=== PATIENT | female | born 1965 | race Caucasian/White ===

== ENCOUNTER 2021-09-13 10:06 | Emergency (ER) | payer MEDICAID ==
[2021-09-13] MEDS ORDERED: Sodium Chloride 0.9% 1000 ML 1,000 ML IV STA (10:33)
[2021-09-13] MEDS ORDERED: Zofran 4 MG/2 ML VIAL IV ONE (10:33)
[2021-09-13] MEDS ORDERED: Zofran 4 MG/2 ML VIAL ONE (10:36)
[2021-09-13] MEDS ORDERED: Sodium Chloride 0.9% 1000 ML 1,000 ML ONE (10:36)
--- NOTE | 2021-09-13 10:40 | ERPHSYRPT ---
- History of Present Illness Historian: patient Exam Limitations: no limitations Patient Subjective Stated Complaint: PT states "I have been vomiting since monday and the right side of my lower back hurts.". Pt sister states "She has chronic UTI, she just had her left caritid cleaned out and she needs her right carotid and both femorals done as well. We just moved her here from [place]. She is diabetic, has abdomen issues as well." Triage Nursing Assessment: Pt presented alert and oriented X 3, skin wpd Pt ambulates with an upright steady gait, able to speak in clear full sentences pt in no apparent respiratory distress. Physician History: 56 yo wf w N/V x 3 days. Pt has mild diarrhea but denies any real abdominal pain. Chest pain/dyspnea are also denied. Pt has a mild cough which she states is chronic. Hematemesis/melena/hematochezia are also denied. Pt has mild R flank pain and mild dysuria wo hematuria/frequency. Pt is fully vaccinated and fever is denied. Pt smokes 1ppd and ETOH use denied. Timing/Duration: other (3 days) Quality: other (No real abdominal pain) Pain Radiation: no radiation Severity of Pain-Max: none Severity of Pain-Current: none Modifying Factors: Improves With: nothing, urinating Associated Symptoms: back, diarrhea (Mild), nausea, vomiting Previous symptoms: no prior history Allergies/Adverse Reactions: Cephalosporins Allergy (Intermediate, Verified 09/13/21 10:24) Tetracyclines Allergy (Intermediate, Verified 09/13/21 10:24) avalox Allergy (Intermediate, Uncoded 09/13/21 10:24) Home Medications: Atorvastatin Calcium [Lipitor 40Mg] 40 mg PO DAILY 09/13/21 [History] Gabapentin [Neurontin] 300 mg PO TID 09/13/21 [History] Iron 18 mg PO DAILY 09/13/21 [History] Lisinopril 5 mg [Zestril 5 MG] 5 mg PO DAILY 09/13/21 [History] Metformin HCl [Metformin ER Gastric] 500 mg PO BID 09/13/21 [History] Hx Tetanus, Diphtheria Vaccination/Date Given: No Hx Influenza Vaccination/Date Given: Yes Hx Pneumococcal Vaccination/Date Given: Yes Immunizations Up to Date: Yes Travel Risk - International Travel Have you traveled outside of the country in past 3 weeks: No - Coronavirus Screening Are you exhibiting any of the following symptoms?: No Close contact with a COVID-19 positive Pt in past 14-21 Days: No - Vaccine Status Have you recieved a Covid-19 vaccination: Yes 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 - Vaccination Dates Date of 2cond Vaccination (if applicable): 07/2021 - Review of Systems Constitutional: No Symptoms Eyes: No Symptoms Ears, Nose, & Throat: No Symptoms Respiratory: No Symptoms Cardiac: No Symptoms Abdominal/Gastrointestinal: No Symptoms, Nausea, Vomiting, Diarrhea, No Abdominal Pain Genitourinary Symptoms: No Symptoms, Dysuria (Mild), Flank Pain Musculoskeletal: No Symptoms Skin: No Symptoms Neurological: No Symptoms Psychological: No Symptoms Endocrine: No Symptoms Hematologic/Lymphatic: No Symptoms Immunological/Allergic: No Symptoms - Past Medical History Pertinent Past Medical History: Yes Neurological History: Dementia ENT History: No Pertinent History Cardiac History: Hypertension Respiratory History: COPD Endocrine Medical History: Diabetes Type II Musculoskeletal History: Arthritis GI Medical History: GERD, Other History: No Pertinent History Psycho-Social History: No Pertinent History Female Reproductive Disorders: No Pertinent History Other Medical History: metabolic encephalopathy. frequent UTI - Past Surgical History Past Surgical History: Yes Other Surgical History: carotid. back. sg. hysterectomy - Social History Smoking Status: Current every day smoker How long have you smoked: years Exposure to second hand smoke: Yes Drug Use: none Patient Lives Alone: No - Female History Hx Now: No - Nursing Vital Signs Nursing Vital Signs: Initial Vital Signs Temperature 97.8 F 09/13/21 10:15 Pulse Rate 101 H 09/13/21 10:15 Respiratory Rate 20 09/13/21 10:15 Blood Pressure 136/86 09/13/21 10:15 O2 Sat by Pulse Oximetry 100 09/13/21 10:15 Pain Scale Pain Intensity 0 Tachy - Physical Exam General Appearance: no apparent distress Eye Exam: PERRL/EOMI, eyes nml inspection Ears, Nose, Throat Exam: normal ENT inspection, TMs normal, pharynx normal, moist mucous membranes Neck Exam: normal inspection, non-tender, supple, full range of motion, No meningismus, No mass, No Brudzinski, No Kernig's, No carotid bruit Respiratory Exam: normal breath sounds, lungs clear, airway intact Cardiovascular Exam: tachycardia (Mild) Gastrointestinal/Abdomen Exam: soft, normal bowel sounds, No tenderness, No distention Extremity Exam: normal inspection, normal range of motion Neurologic Exam: alert, oriented x 3, cooperative, cementer machine II-XII nml as tested, normal mood/affect, nml cerebellar function, nml station & gait, sensation nml Skin Exam: normal color, warm, dry Lymphatic Exam: No adenopathy SpO2 Interpretation: normal SpO2: 100 O2 Delivery: Room Air - Course Nursing assessment & vital signs reviewed: Yes EKG Interpreted by Me: RATE (NSR/R91/Normal Qt-QTc/Low voltage/No acute ST segment changes) - CT Exams Abdomen/Pelvis CT Interpretation: Discussed w/radiologist (Nothing acute/2.3x2.5AAA/Normal appy/Previous sg) Ordered Tests: Active Orders 24 hr Category Date Time Status EKG-ER Only STAT Care 09/13/21 10:33 Completed IV Insertion STAT Care 09/13/21 10:33 Completed ABDOMEN AND PELVIS W/0 CONTRAS [CT] Stat Exams 09/13/21 11:36 Completed CBC W DIFF Stat Lab 09/13/21 10:45 Completed CMP Stat Lab 09/13/21 10:45 Completed Lactic Acid Stat Lab 09/13/21 10:33 Completed TROPONIN Q3H Lab 09/13/21 10:45 Completed UA W/RFX UR CULTURE Stat Lab 09/13/21 10:29 Completed Medication Summary Discontinued Medications Generic Name Dose Route Start Last Admin Trade Name Freq PRN Reason Stop Dose Admin Fentanyl Citrate 25 mcg 09/13/21 11:48 09/13/21 11:52 Fentanyl Citrate 100 Mcg/2 Ml* Vial IV 09/13/21 11:49 25 mcg STAT ONE Administration Fentanyl Citrate Confirm 09/13/21 11:51 Fentanyl Citrate 100 Mcg/2 Ml* Vial Administered 09/13/21 11:52 Dose 100 mcg .ROUTE .STK-MED ONE Sodium Chloride 1,000 mls @ 999 mls/hr 09/13/21 10:33 09/13/21 11:47 Sodium Chloride 0.9% 1000 Ml IV 09/13/21 11:33 Infused .Q1H1M STA Infusion Sodium Chloride Confirm 09/13/21 10:36 Sodium Chloride 0.9% 1000 Ml Administered 09/13/21 10:37 Dose 1,000 mls @ ud .ROUTE .STK-MED ONE Ondansetron HCl 4 mg 09/13/21 10:33 09/13/21 10:38 Ondansetron Hcl 4 Mg/2 Ml Vial IV 09/13/21 10:34 4 mg STAT ONE Administration Ondansetron HCl Confirm 09/13/21 10:36 Ondansetron Hcl 4 Mg/2 Ml Vial Administered 09/13/21 10:37 Dose 4 mg .ROUTE .STK-MED ONE Lab/Rad Data: Laboratory Result Diagrams 09/13/21 10:45 09/13/21 10:45 Laboratory Results 09/13/21 09/13/21 09/13/21 Range/Units 10:45 10:45 10:45 WBC 12.3 H (4.0-10.5) K/mm3 RBC 4.74 (4.1-5.4) M/mm3 Hgb 13.4 (12.0-16.0) gm/dl Hct 39.6 (35-47) % MCV 83.5 (78-100) fl MCH 28.3 (26-32) pg MCHC 33.8 (32-36) g/dl RDW 14.9 H (11.5-14.0) % Plt Count 282 (150-450) K/mm3 MPV 9.3 (7.5-11.0) fl Gran % 63.0 (36.0-66.0) % Eos # (Auto) 0.08 (0-0.5) Absolute Lymphs (auto) 3.64 (1.0-4.6) Absolute Monos (auto) 0.81 (0.0-1.3) Lymphocytes % 29.6 (24.0-44.0) % Monocytes % 6.6 (0.0-12.0) % Eosinophils % 0.6 (0.00-5.0) % Basophils % 0.2 (0.0-0.4) % Absolute Granulocytes 7.75 H (1.4-6.9) Basophils # 0.03 (0-0.4) Sodium 133 L (137-145) mmol/L Potassium 4.4 (3.5-5.1) mmol/L Chloride 96 L (98-107) mmol/L Carbon Dioxide 23 (22-30) mmol/L Anion Gap 18.9 H (5-15) MEQ/L BUN 35 H (7-17) mg/dL Creatinine 1.31 H (0.52-1.04) mg/dL Estimated GFR 44.3 ML/MIN Glucose 192 H (74-106) mg/dL Lactic Acid (0.4-2.0) Calcium 9.5 (8.4-10.2) mg/dL Total Bilirubin 0.50 (0.2-1.3) mg/dL AST 19 (14-36) U/L ALT 13 (0-35) U/L Alkaline Phosphatase 83 (38-126) U/L Troponin I < 0.012 (0.000-0.034) ng/mL Serum Total Protein 7.7 (6.3-8.2) g/dL Albumin 4.5 (3.5-5.0) g/dL Urine Color (YELLOW) Urine Appearance (CLEAR) Urine pH (5-6) Ur Specific [place] (1.005-1.025) Urine Protein (Negative) Urine Ketones (NEGATIVE) Urine Blood (0-5) Demetrio/ul Urine Nitrite (NEGATIVE) Urine Bilirubin (NEGATIVE) Urine Urobilinogen (0-1) mg/dL Ur Leukocyte Esterase (NEGATIVE) Urine WBC (Auto) (0-5) /HPF Urine RBC (Auto) (0-2) /HPF U Epithel Cells (Auto) (FEW) /HPF Urine Bacteria (Auto) (NEGATIVE) /HPF Urine Mucus (Auto) (NEGATIVE) /HPF Urine Culture Reflexed (NO) Urine Glucose (NEGATIVE) mg/dL 09/13/21 09/13/21 Range/Units 10:33 10:29 WBC (4.0-10.5) K/mm3 RBC (4.1-5.4) M/mm3 Hgb (12.0-16.0) gm/dl Hct (35-47) % MCV (78-100) fl MCH (26-32) pg MCHC (32-36) g/dl RDW (11.5-14.0) % Plt Count (150-450) K/mm3 MPV (7.5-11.0) fl Gran % (36.0-66.0) % Eos # (Auto) (0-0.5) Absolute Lymphs (auto) (1.0-4.6) Absolute Monos (auto) (0.0-1.3) Lymphocytes % (24.0-44.0) % Monocytes % (0.0-12.0) % Eosinophils % (0.00-5.0) % Basophils % (0.0-0.4) % Absolute Granulocytes (1.4-6.9) Basophils # (0-0.4) Sodium (137-145) mmol/L Potassium (3.5-5.1) mmol/L Chloride (98-107) mmol/L Carbon Dioxide (22-30) mmol/L Anion Gap (5-15) MEQ/L BUN (7-17) mg/dL Creatinine (0.52-1.04) mg/dL Estimated GFR ML/MIN Glucose (74-106) mg/dL Lactic Acid 1.2 (0.4-2.0) Calcium (8.4-10.2) mg/dL Total Bilirubin (0.2-1.3) mg/dL AST (14-36) U/L ALT (0-35) U/L Alkaline Phosphatase (38-126) U/L Troponin I (0.000-0.034) ng/mL Serum Total Protein (6.3-8.2) g/dL Albumin (3.5-5.0) g/dL Urine Color YELLOW (YELLOW) Urine Appearance SLIGHTLY CLOUDY (CLEAR) Urine pH 5.0 (5-6) Ur Specific [place] 1.018 (1.005-1.025) Urine Protein 100 (Negative) Urine Ketones TRACE (NEGATIVE) Urine Blood NEGATIVE (0-5) Demetrio/ul Urine Nitrite NEGATIVE (NEGATIVE) Urine Bilirubin NEGATIVE (NEGATIVE) Urine Urobilinogen NEGATIVE (0-1) mg/dL Ur Leukocyte Esterase NEGATIVE (NEGATIVE) Urine WBC (Auto) NONE (0-5) /HPF Urine RBC (Auto) NONE (0-2) /HPF U Epithel Cells (Auto) RARE (FEW) /HPF Urine Bacteria (Auto) NONE (NEGATIVE) /HPF Urine Mucus (Auto) SLIGHT (NEGATIVE) /HPF Urine Culture Reflexed NO (NO) Urine Glucose >=500 (NEGATIVE) mg/dL - Progress Progress: improved Progress Note: 09/13/21 12:42 1L NS bolus/4mg IV Zofran 25umg IV Fentanyl 09/13/21 12:43 Pt has renal insufficiency which pt states is chronic. All previous records in [facility]. All CT results reviewed w pt 09/13/21 19:53 Covid19 test pending Counseled pt/family regarding: lab results, diagnosis, need for follow-up, rad results - Departure Departure Disposition: Home Clinical Impression: Nausea & vomiting, AAA (abdominal aortic aneurysm) without rupture, Renal insufficiency Condition: Stable Critical Care Time: No Referrals: DOCTOR,NO FAMILY [Primary Care Provider] - Follow up/PCP as directed Instructions: Nausea and Vomiting, Adult (DC), Chronic Kidney Disease (DC) Additional Instructions: Zofran for nausea/vomiting Fluids Advance diet slowly Return to ER for inability to hold down fluids or increasing abdominal pain Follow up with a family MD about aortic aneurism Prescriptions: ondansetron HCL [Zofran] 4 mg PO Q6H PRN #10 tablet PRN Reason: Nausea/Vomiting
[2021-09-13 10:54] LABS: Absolute Neutrophil Ct (ANC) 7.75 (1.4-6.9); BASOPHIL % 0.2 % (0.0-0.4); Basophil (Absolute #) 0.03 (0-0.4); Eosinophil % 0.6 % (0.00-5.0); Eosinophil (Absolute #) 0.08 (0-0.5); Hematocrit 39.6 % (35-47); Hemoglobin 13.4 gm/dl (12.0-16.0); Lymphocyte (Absolute #) 3.64 (1.0-4.6); Lymphocytes % 29.6 % (24.0-44.0); Mean Cell Volume 83.5 fl (78-100); Mean Corpuscular Hemoglobin 28.3 pg (26-32); Mean Corpuscular Hgb Concent. 33.8 g/dl (32-36); Mean Platelet Volume 9.3 fl (7.5-11.0); Monocyte (Absolute #) 0.81 (0.0-1.3); Monocytes % 6.6 % (0.0-12.0); Platelet Count 282 K/mm3 (150-450); Red Blood Count 4.74 M/mm3 (4.1-5.4); Red Cell Distribution Width 14.9 % (11.5-14.0); White Blood Count 12.3 K/mm3 (4.0-10.5)
[2021-09-13 11:05] LABS: ALBUMIN 4.5 g/dL (3.5-5.0); ANION GAP 18.9 MEQ/L (5-15); BILIRUBIN,TOTAL 0.5 mg/dL (0.2-1.3); Calcium 9.5 mg/dL (8.4-10.2); Creatinine 1 1.31 mg/dL (0.52-1.04); EST GLOMERULAR FILTRATION RATE 44.3 ML/MIN; Potassium 4.4 mmol/L (3.5-5.1); Total Protein 7.7 g/dL (6.3-8.2)
[2021-09-13 11:19] LABS: Appearance SLIGHTLY CLOUDY (CLEAR); Bilirubin NEGATIVE (NEGATIVE); Blood NEGATIVE Ery/ul (0-5); Epithelial Cells RARE /HPF (FEW); Glucose >=500 mg/dL (NEGATIVE); Ketones TRACE (NEGATIVE); Leukocyte Esterase NEGATIVE (NEGATIVE); Mucus SLIGHT /HPF (NEGATIVE); Nitrite NEGATIVE (NEGATIVE); Protein,Urine Dip 100 (Negative); Specific Gravity 1.018 (1.005-1.025); Urobilinogen NEGATIVE mg/dL (0-1)
[2021-09-13] MEDS ORDERED: SUBLIMAZE 100 MCG/2 ML IV ONE (11:48)
[2021-09-13] MEDS ORDERED: SUBLIMAZE 100 MCG/2 ML ONE (11:51)
--- NOTE | 2021-09-13 12:28 | XRAY ---
Indication: Right back pain. History kidney stones. Multiple contiguous axial images obtained through the abdomen and pelvis without contrast. Comparison: None Lung bases are clear. Heart is not enlarged. No renal calculus or evidence for obstructive uropathy in either system. There are mild scattered renal artery calcifications right greater than left. Noncontrasted stomach and bowel loops nonobstructed. Normal appendix. Radiopacity in the ascending and transverse colon presumed ingested medication/bismuth or barium. Previous cholecystectomy. No free fluid/air. Remaining liver, pancreas, spleen, adrenal glands, kidneys, ureters, and bladder are unremarkable for noncontrast exam. Moderate aortoiliac calcifications with distal 2.3 x 2.5 cm aortic aneurysm. Osseous structures intact with minimal/mild degenerative changes throughout the spine. Intact ventral mesh graft. Impression: 1. No renal calculus or evidence for obstructive uropathy. 2. Moderate arteriosclerotic calcifications including both renal arteries. Incidental minimal distal AAA. 3. Remaining CT abdomen/pelvis without contrast exam is negative.
[2021-09-13 12:35] VITALS: BP 138/80; PULSE 83
[2021-09-13 12:46] VITALS: O2SAT 100
== END 2021-09-13 13:08 | disposition home or self-care (01) ==
LOC: ED 10:06
DX: I71.4 Abdominal aortic aneurysm, without rupture (principal); R11.2 Nausea with vomiting, unspecified; I12.9 Hypertensive chronic kidney disease with stage 1 through stage 4 chronic kidney disease, or unspecified chronic kidney disease; E11.22 Type 2 diabetes mellitus with diabetic chronic kidney disease; N18.9 Chronic kidney disease, unspecified; Z72.0 Tobacco use; Z79.84 Long term (current) use of oral hypoglycemic drugs
CPT/HCPCS: 36000; 36415; 74176; 80053; 81001; 83605; 84484; 85025; 93005; 96360; 96374; 96375; 99284; U0003; J2405; J3010

== ENCOUNTER 2021-09-19 17:17 | Observation (INO) | payer MEDICAID ==
[2021-09-19] MEDS ORDERED: Sodium Chloride 0.9% 1000 ML 1,000 ML IV STA (17:50)
[2021-09-19] MEDS ORDERED: Sodium Chloride 0.9% 1000 ML 1,000 ML ONE (18:05)
[2021-09-19 18:35] LABS: Absolute Neutrophil Ct (ANC) 9.43 (1.4-6.9); BASOPHIL % 0.3 % (0.0-0.4); Basophil (Absolute #) 0.04 (0-0.4); Eosinophil (Absolute #) 0.15 (0-0.5); Hematocrit 41.6 % (35-47); Hemoglobin 14.4 gm/dl (12.0-16.0); Lymphocyte (Absolute #) 3.77 (1.0-4.6); Lymphocytes % 26.3 % (24.0-44.0); Mean Cell Volume 82.1 fl (78-100); Mean Corpuscular Hemoglobin 28.4 pg (26-32); Mean Corpuscular Hgb Concent. 34.6 g/dl (32-36); Mean Platelet Volume 10.1 fl (7.5-11.0); Monocyte (Absolute #) 0.94 (0.0-1.3); Monocytes % 6.6 % (0.0-12.0); Neutrophil % 65.8 % (36.0-66.0); Platelet Count 319 K/mm3 (150-450); Red Blood Count 5.07 M/mm3 (4.1-5.4); Red Cell Distribution Width 14.5 % (11.5-14.0); White Blood Count 14.3 K/mm3 (4.0-10.5)
[2021-09-19 18:52] LABS: Amphetamine,Urine NEGATIVE (NEGATIVE); Barbiturate,Urine NEGATIVE (NEGATIVE); Benzodiazepine,Urine POSITIVE (NEGATIVE); Cocaine,Urine NEGATIVE (NEGATIVE); Methadone,Urine NEGATIVE (NEGATIVE); Opiate,Urine POSITIVE (NEGATIVE); PCP,Urine NEGATIVE (NEGATIVE); THC,Urine POSITIVE (NEGATIVE)
--- NOTE | 2021-09-19 18:59 | ERPHSYRPT ---
- History of Present Illness Time Seen by Provider: 09/19/21 17:45 Source: family Exam Limitations: clinical condition Patient Subjective Stated Complaint: Sister states that the pt has become very confused and doesn't recognize anyone in the family and thought that she was still in [place], she moved here about a 1.5 weeks ago Triage Nursing Assessment: Pt brought to the ER by her sister, hypertensive, rates pain 10/10, unable to hold either leg up, unable to touch finger to nose, unable to find this nurses finger to touch, no peripherial vision, pulses normal, diagnosed Monday with a UTI and is on antibiotics, has been septic before, hx of TIA's, has a droop on her face but sister says that is normal when she is tired, skin n/w/d, doesn't recognize any family members, doesn't know her name, last known well was yesterday afternoon Physician History: Patient is a 56-year-old white female who presents with onset of confusion. Which started last night. She recently was brought to this area by her family c oncerned about her overall health. She has been in the ER recently for urinary tract infection and is on antibiotics. She has been septic x2 in the past and has also had a CVA. Today she was confused and thought she was still in [place]. Timing/Duration: yesterday Severity: severe Deficits: cannot stand, cannot walk Baseline/Normal Cognition: alert oriented x 3 Current Cognition: alert/disoriented to time Baseline Gait: unable to walk Allergies/Adverse Reactions: Cephalosporins Allergy (Intermediate, Verified 09/19/21 18:10) Tetracyclines Allergy (Intermediate, Verified 09/19/21 18:10) avalox Allergy (Intermediate, Uncoded 09/19/21 18:10) Home Medications: Atorvastatin Calcium [Lipitor 40Mg] 40 mg PO DAILY 09/13/21 [History] Gabapentin [Neurontin] 300 mg PO TID 09/13/21 [History] Iron 18 mg PO DAILY 09/13/21 [History] Lisinopril 5 mg [Zestril 5 MG] 5 mg PO DAILY 09/13/21 [History] Metformin HCl [Metformin ER Gastric] 500 mg PO BID 09/13/21 [History] Hx Tetanus, Diphtheria Vaccination/Date Given: No Hx Influenza Vaccination/Date Given: Yes Hx Pneumococcal Vaccination/Date Given: Yes Travel Risk - International Travel Have you traveled outside of the country in past 3 weeks: No - Coronavirus Screening Are you exhibiting any of the following symptoms?: No Close contact with a COVID-19 positive Pt in past 14-21 Days: No - Vaccine Status Have you recieved a Covid-19 vaccination: Yes 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 - Vaccination Dates Date of 2cond Vaccination (if applicable): 07/2021 - Review of Systems All Other Systems: Unable due to condition - Past Medical History Pertinent Past Medical History: Yes Neurological History: Dementia, TIA ENT History: No Pertinent History Cardiac History: Hypertension Respiratory History: COPD Endocrine Medical History: Diabetes Type II Musculoskeletal History: Arthritis GI Medical History: GERD, Other History: No Pertinent History Psycho-Social History: No Pertinent History Female Reproductive Disorders: No Pertinent History Other Medical History: metabolic encephalopathy. frequent UTI - Past Surgical History Past Surgical History: Yes Other Surgical History: carotid. back. sg. hysterectomy - Social History Smoking Status: Current every day smoker How long have you smoked: years Exposure to second hand smoke: Yes Drug Use: none Patient Lives Alone: No - Nursing Vital Signs Nursing Vital Signs: Initial Vital Signs Temperature 97.5 F 09/19/21 17:40 Pulse Rate 92 H 09/19/21 17:40 Blood Pressure 145/79 09/19/21 17:40 O2 Sat by Pulse Oximetry 98 09/19/21 17:40 Pain Scale Pain Intensity 5 - [place] Coma Scale Best Eye Response ([place]): (4) open spontaneously Best Verbal Response ([place]): (4) confused conversation Best Motor Response ([place]): (5) localizes to pain [place] Total: 13 - Physical Exam General Appearance: moderate distress Eye Exam: bilateral eye: normal inspection, PERRL, EOMI Ears, Nose, Throat Exam: normal ENT inspection, moist mucous membranes Neck Exam: normal inspection, non-tender, supple Respiratory: normal breath sounds, No chest tenderness, No respiratory distress Cardiovascular: regular rate/rhythm, normal heart sounds Gastrointestinal: soft, normal bowel sounds, No tenderness, No guarding Pelvic Exam: not done Rectal Exam: deferred Back Exam: normal inspection, normal range of motion Extremity Exam: normal inspection, normal range of motion Peripheral Pulses: carotid (R): 2+, carotid (L): 2+ Mental Status: disoriented to person, disoriented to place, 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 Exam: PERRL, tongue midline, No facial droop Motor/Sensory: no sensory deficit, weak motor strength RUE, weak motor strength LUE, weak motor strength RLE, weak motor strength LLE Skin Exam: normal color, warm, dry SpO2 Interpretation: normal SpO2: 96 O2 Delivery: Room Air - Course Nursing assessment & vital signs reviewed: Yes EKG Interpreted by Me: RATE (91), NORMAL AXIS, NORMAL INTERVALS, Non-specific ST Changes - Radiology Exams Chest X-ray Interpretation: Interpreted by me, Negative - CT Exams Head CT Interpretation: Tele-radiologist Report Ordered Tests: Active Orders 24 hr Category Date Time Status EKG-ER Only STAT Care 09/19/21 17:47 Active IV Insertion STAT Care 09/19/21 17:47 Active NPO (ED) STAT Care 09/19/21 17:48 Active CHEST 1 VIEW (PORTABLE) Stat Exams 09/19/21 17:48 Taken HEAD WITHOUT CONTRAST [CT] Stat Exams 09/19/21 17:48 Taken BLOOD CULTURE Stat Lab 09/19/21 18:20 Received CBC W DIFF Stat Lab 09/19/21 18:04 Completed CMP Stat Lab 09/19/21 21:04 Ordered CULTURE,URINE Stat Lab 09/19/21 18:04 Received ETHYL ALCOHOL Stat Lab 09/19/21 18:04 Completed Lactic Acid Urgent Lab 09/19/21 17:50 Completed PROCALCITONIN Stat Lab 09/19/21 18:00 Completed PTT Stat Lab 09/19/21 18:04 Completed TROPONIN Q3H Lab 09/19/21 18:04 Completed TROPONIN Q3H Lab 09/19/21 21:00 Ordered TROPONIN Q3H Lab 09/20/21 00:00 Ordered TROPONIN Q3H Lab 09/20/21 03:00 Ordered TROPONIN Q3H Lab 09/20/21 06:00 Ordered UA W/RFX UR CULTURE Stat Lab 09/19/21 18:04 Completed Urine Triage Profile Stat Lab 09/19/21 18:04 Completed Medication Summary Discontinued Medications Generic Name Dose Route Start Last Admin Trade Name Freq PRN Reason Stop Dose Admin Sodium Chloride 1,000 mls @ 999 mls/hr 09/19/21 17:50 09/19/21 19:21 Sodium Chloride 0.9% 1000 Ml IV 09/19/21 18:50 Infused .Q1H1M STA Infusion Sodium Chloride Confirm 09/19/21 18:05 Sodium Chloride 0.9% 1000 Ml Administered 09/19/21 18:06 Dose 1,000 mls @ ud .ROUTE .[facility]-MED ONE Lab/Rad Data: Laboratory Result Diagrams 09/19/21 18:04 Laboratory Results 09/19/21 09/19/21 09/19/21 Range/Units 18:04 18:04 18:04 WBC (4.0-10.5) K/mm3 RBC (4.1-5.4) M/mm3 Hgb (12.0-16.0) gm/dl Hct (35-47) % MCV (78-100) fl MCH (26-32) pg MCHC (32-36) g/dl RDW (11.5-14.0) % Plt Count (150-450) K/mm3 MPV (7.5-11.0) fl Gran % (36.0-66.0) % Eos # (Auto) (0-0.5) Absolute Lymphs (auto) (1.0-4.6) Absolute Monos (auto) (0.0-1.3) Lymphocytes % (24.0-44.0) % Monocytes % (0.0-12.0) % Eosinophils % (0.00-5.0) % Basophils % (0.0-0.4) % Absolute Granulocytes (1.4-6.9) Basophils # (0-0.4) APTT (25.1-36.5) SECONDS Lactic Acid (0.4-2.0) Troponin I < 0.012 (0.000-0.034) ng/mL Procalcitonin (0.030-0.080) ng/mL Urine Color YELLOW (YELLOW) Urine Appearance SLIGHTLY CLOUDY (CLEAR) Urine pH 5.0 (5-6) Ur Specific [place] 1.025 (1.005-1.025) Urine Protein 100 (Negative) Urine Ketones NEGATIVE (NEGATIVE) Urine Blood SMALL (0-5) Demetrio/ul Urine Nitrite NEGATIVE (NEGATIVE) Urine Bilirubin NEGATIVE (NEGATIVE) Urine Urobilinogen NEGATIVE (0-1) mg/dL Ur Leukocyte Esterase NEGATIVE (NEGATIVE) Urine WBC (Auto) 3-5 (0-5) /HPF Urine RBC (Auto) NONE (0-2) /HPF U Epithel Cells (Auto) NONE (FEW) /HPF Urine Bacteria (Auto) NONE (NEGATIVE) /HPF Urine Mucus (Auto) SLIGHT (NEGATIVE) /HPF Urine Yeast (Budding) Few (NEGATIVE) /HPF Urine Culture Reflexed YES (NO) Urine Glucose >=500 (NEGATIVE) mg/dL Urine Opiates Level POSITIVE (NEGATIVE) Ur Methadone NEGATIVE (NEGATIVE) Urine Barbiturates NEGATIVE (NEGATIVE) Ur Phencyclidine (PCP) NEGATIVE (NEGATIVE) Urine Amphetamine NEGATIVE (NEGATIVE) U Benzodiazepine Level POSITIVE (NEGATIVE) Urine Cocaine NEGATIVE (NEGATIVE) Urine Marijuana (THC) POSITIVE (NEGATIVE) Ethyl Alcohol (0-10) mg/dL 09/19/21 09/19/21 09/19/21 Range/Units 18:04 18:04 18:04 WBC 14.3 H (4.0-10.5) K/mm3 RBC 5.07 (4.1-5.4) M/mm3 Hgb 14.4 (12.0-16.0) gm/dl Hct 41.6 (35-47) % MCV 82.1 (78-100) fl MCH 28.4 (26-32) pg MCHC 34.6 (32-36) g/dl RDW 14.5 H (11.5-14.0) % Plt Count 319 (150-450) K/mm3 MPV 10.1 (7.5-11.0) fl Gran % 65.8 (36.0-66.0) % Eos # (Auto) 0.15 (0-0.5) Absolute Lymphs (auto) 3.77 (1.0-4.6) Absolute Monos (auto) 0.94 (0.0-1.3) Lymphocytes % 26.3 (24.0-44.0) % Monocytes % 6.6 (0.0-12.0) % Eosinophils % 1.0 (0.00-5.0) % Basophils % 0.3 (0.0-0.4) % Absolute Granulocytes 9.43 H (1.4-6.9) Basophils # 0.04 (0-0.4) APTT 19.4 L (25.1-36.5) SECONDS Lactic Acid (0.4-2.0) Troponin I (0.000-0.034) ng/mL Procalcitonin (0.030-0.080) ng/mL Urine Color (YELLOW) Urine Appearance (CLEAR) Urine pH (5-6) Ur Specific [place] (1.005-1.025) Urine Protein (Negative) Urine Ketones (NEGATIVE) Urine Blood (0-5) Demetrio/ul Urine Nitrite (NEGATIVE) Urine Bilirubin (NEGATIVE) Urine Urobilinogen (0-1) mg/dL Ur Leukocyte Esterase (NEGATIVE) Urine WBC (Auto) (0-5) /HPF Urine RBC (Auto) (0-2) /HPF U Epithel Cells (Auto) (FEW) /HPF Urine Bacteria (Auto) (NEGATIVE) /HPF Urine Mucus (Auto) (NEGATIVE) /HPF Urine Yeast (Budding) (NEGATIVE) /HPF Urine Culture Reflexed (NO) Urine Glucose (NEGATIVE) mg/dL Urine Opiates Level (NEGATIVE) Ur Methadone (NEGATIVE) Urine Barbiturates (NEGATIVE) Ur Phencyclidine (PCP) (NEGATIVE) Urine Amphetamine (NEGATIVE) U Benzodiazepine Level (NEGATIVE) Urine Cocaine (NEGATIVE) Urine Marijuana (THC) (NEGATIVE) Ethyl Alcohol < 10 (0-10) mg/dL 09/19/21 09/19/21 Range/Units 18:00 17:50 WBC (4.0-10.5) K/mm3 RBC (4.1-5.4) M/mm3 Hgb (12.0-16.0) gm/dl Hct (35-47) % MCV (78-100) fl MCH (26-32) pg MCHC (32-36) g/dl RDW (11.5-14.0) % Plt Count (150-450) K/mm3 MPV (7.5-11.0) fl Gran % (36.0-66.0) % Eos # (Auto) (0-0.5) Absolute Lymphs (auto) (1.0-4.6) Absolute Monos (auto) (0.0-1.3) Lymphocytes % (24.0-44.0) % Monocytes % (0.0-12.0) % Eosinophils % (0.00-5.0) % Basophils % (0.0-0.4) % Absolute Granulocytes (1.4-6.9) Basophils # (0-0.4) APTT (25.1-36.5) SECONDS Lactic Acid 1.0 (0.4-2.0) Troponin I (0.000-0.034) ng/mL Procalcitonin 0.093 H (0.030-0.080) ng/mL Urine Color (YELLOW) Urine Appearance (CLEAR) Urine pH (5-6) Ur Specific [place] (1.005-1.025) Urine Protein (Negative) Urine Ketones (NEGATIVE) Urine Blood (0-5) Demetrio/ul Urine Nitrite (NEGATIVE) Urine Bilirubin (NEGATIVE) Urine Urobilinogen (0-1) mg/dL Ur Leukocyte Esterase (NEGATIVE) Urine WBC (Auto) (0-5) /HPF Urine RBC (Auto) (0-2) /HPF U Epithel Cells (Auto) (FEW) /HPF Urine Bacteria (Auto) (NEGATIVE) /HPF Urine Mucus (Auto) (NEGATIVE) /HPF Urine Yeast (Budding) (NEGATIVE) /HPF Urine Culture Reflexed (NO) Urine Glucose (NEGATIVE) mg/dL Urine Opiates Level (NEGATIVE) Ur Methadone (NEGATIVE) Urine Barbiturates (NEGATIVE) Ur Phencyclidine (PCP) (NEGATIVE) Urine Amphetamine (NEGATIVE) U Benzodiazepine Level (NEGATIVE) Urine Cocaine (NEGATIVE) Urine Marijuana (THC) (NEGATIVE) Ethyl Alcohol (0-10) mg/dL - Progress Progress: unchanged - Departure Departure Disposition: Home Clinical Impression: Altered mental status Condition: Fair Critical Care Time: No Referrals: VINCE MEJÍA [Primary Care Provider] - Follow up/PCP as directed Instructions: Delirium (Confusion) (DC)
[2021-09-19 19:04] LABS: Appearance SLIGHTLY CLOUDY (CLEAR); Bilirubin NEGATIVE (NEGATIVE); Blood SMALL Ery/ul (0-5); Glucose >=500 mg/dL (NEGATIVE); Ketones NEGATIVE (NEGATIVE); Leukocyte Esterase NEGATIVE (NEGATIVE); Mucus SLIGHT /HPF (NEGATIVE); Nitrite NEGATIVE (NEGATIVE); Protein,Urine Dip 100 (Negative); Specific Gravity 1.025 (1.005-1.025); Urobilinogen NEGATIVE mg/dL (0-1)
[2021-09-19 19:18] LABS: Budding Yeast Few /HPF (NEGATIVE)
[2021-09-19] MEDS: Sodium Chloride 0.9% 1000 ML 1,000 ML IV SCH (21:24)
[2021-09-19] MEDS ORDERED: TORAdol 30 mg Injection ONE (21:47)
[2021-09-19] MEDS ORDERED: TORAdol 30 mg Injection IV ONE (21:53)
[2021-09-19 21:56] LABS: ALBUMIN 3.6 g/dL (3.5-5.0); ALKALINE PHOSPHATASE 93 U/L (38-126); ANION GAP 14.4 MEQ/L (5-15); BLOOD UREA NITROGEN 22 mg/dL (7-17); CHLORIDE 101 mmol/L (98-107); Calcium 8.6 mg/dL (8.4-10.2); Carbon Dioxide 18 mmol/L (22-30); EST GLOMERULAR FILTRATION RATE > 60.0 ML/MIN; Glucose 278 mg/dL (74-106); Potassium 4.3 mmol/L (3.5-5.1); SGOT/AST 24 U/L (14-36); SGPT/ALT 18 U/L (0-35); SODIUM 129 mmol/L (137-145); Total Protein 6.6 g/dL (6.3-8.2)
[2021-09-19 21:58] LABS: INFLUENZA A NEGATIVE (NEGATIVE); INFLUENZA B NEGATIVE (NEGATIVE); RESPIRATORY SYNCTIAL VIRUS NEGATIVE (Negative); SARS-CoV-2 Xpert Express NEGATIVE (NEGATIVE)
[2021-09-20] MEDS: Zofran 4 MG/2 ML VIAL IV PRN ×3 (00:53→19:49)
[2021-09-20] MEDS: NORCO 5/325 MG PO PRN ×3 (03:30→23:03)
[2021-09-20] MEDS: Sodium Chloride 0.9% 1000 ML 1,000 ML IV SCH ×2 (06:30→20:35)
[2021-09-20] MEDS ORDERED: HUMALOG SQ PRN (06:38)
[2021-09-20] MEDS ORDERED: SYNTHROID 50 MCG PO SCH (07:00)
[2021-09-20] MEDS ORDERED: Ativan 2 MG/1 ML VIAL IV PRN (08:34)
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
--- NOTE | 2021-09-20 08:44 | XRAY ---
Indication: Stroke. Comparison: None Portable chest demonstrates normal heart and lungs. Bony thorax intact with mild osteopenia and degenerative changes.
--- NOTE | 2021-09-20 08:54 | XRAY ---
Indication: Confusion. Stroke. Multiple contiguous axial images obtained through the head without contrast. Comparison: None Normal appearing brain parenchyma, ventricles, and bony calvarium for patient's age. Visualized paranasal sinuses and mastoid air cells are clear. Impression: Normal CT head without contrast exam. Comment: Preliminary interpretation made by [facility]. No critical discrepancy.
[2021-09-20] MEDS: ECOTRIN 81 MG PO SCH (11:38)
[2021-09-20] MEDS: Zestril 10 MG PO SCH (11:39)
[2021-09-20] MEDS: HUMALOG SQ PRN ×2 (11:39→17:23)
[2021-09-20] MEDS: Lantus Insulin SQ SCH ×2 (11:40→23:04)
[2021-09-20] MEDS ORDERED: Cymbalta 30 MG Capsule PO SCH (12:00)
[2021-09-20] MEDS ORDERED: VENTOLIN COMMON CANISTER IH PRN (12:25)
--- NOTE | 2021-09-20 15:13 | XRAY ---
Indication: Stroke symptoms. Sagittal, coronal, and axial MRI brain performed without contrast using T1, T2, FLAIR, diffusion, and ADC sequences. Comparison: None Ventriculosulcal pattern appears symmetric. Minimal periventricular degenerative micro-ischemia signal bilaterally. No acute intracranial hemorrhage, abnormal extra-axial fluid collection, or mass effect. Diffusion images are negative for restricted signal. Fourth ventricle is midline without hydrocephalus. 7/8 cranial nerve complex bilaterally symmetric. Normal flow void signal within the major intracerebral circulation. Normal appearing craniocervical junction and sella turcica. Visualized paranasal sinuses are clear. Partial fluid signal in both inferior mastoid air cells presumed inflammatory. Impression: 1. Minimal degenerative micro-ischemia within normal limits for patient's age. 2. No acute intracranial abnormalities or evidence for evolving large vessel territorial stroke. 3. Incidental partial fluid signal in both mastoid air cells presumed inflammatory.
--- NOTE | 2021-09-20 15:29 | XRAY ---
Indication: Stroke symptoms. Multi-slab 3-D [id number] MRA point lay ira of [place] performed. Comparison: None Distal internal carotid arteries are bilaterally symmetric without critical stenosis/obstruction. Normal carotid terminus with normal branching A1 and M1 segments bilaterally. More distal anterior cerebral and middle cerebral arteries are normal in MRA appearance bilaterally. Posterior circulation demonstrates visualized left/right distal vertebral, basilar, left/right posterior cerebral, and left/right superior cerebellar arteries to be normal in MRA appearance. Impression: Negative MRA point lay ira of [place].
--- NOTE | 2021-09-20 16:26 | XRAY ---
Indication: Stroke symptoms. Multi-slab 3-D [id number] MRA neck performed. Comparison: None Study is markedly degraded by motion artifact. There is moderate arteriosclerotic disease in the right common carotid artery and mild disease in the left common carotid artery. Remaining visualized carotid bulb, internal carotid, and external carotid arteries appear normal in course and caliber without critical stenosis/obstruction. Vertebral arteries are bilaterally symmetric without critical stenosis/obstruction. Impression: Motion artifact limits exam. Moderate right common carotid and mild left common carotid arteriosclerotic disease. Vertebral arteries are grossly unremarkable in MRA appearance. Carotid ultrasound or CTA with contrast exam may yield further information.
[2021-09-20] MEDS: ZOCOR 20MG PO SCH (23:04)
[2021-09-21] MEDS ORDERED: SYNTHROID 50 MCG PO SCH (07:00)
[2021-09-21 07:17] LABS: Absolute Neutrophil Ct (ANC) 7.88 (1.4-6.9); BASOPHIL % 0.2 % (0.0-0.4); Basophil (Absolute #) 0.02 (0-0.4); Eosinophil % 1.2 % (0.00-5.0); Eosinophil (Absolute #) 0.14 (0-0.5); Hematocrit 33.8 % (35-47); Hemoglobin 11.4 gm/dl (12.0-16.0); Lymphocyte (Absolute #) 2.95 (1.0-4.6); Mean Cell Volume 83.5 fl (78-100); Mean Corpuscular Hemoglobin 28.1 pg (26-32); Mean Corpuscular Hgb Concent. 33.7 g/dl (32-36); Mean Platelet Volume 9.6 fl (7.5-11.0); Monocytes % 6.8 % (0.0-12.0); Neutrophil % 66.8 % (36.0-66.0); Platelet Count 232 K/mm3 (150-450); Red Blood Count 4.05 M/mm3 (4.1-5.4); Red Cell Distribution Width 14.4 % (11.5-14.0); White Blood Count 11.8 K/mm3 (4.0-10.5)
[2021-09-21] MEDS: Sodium Chloride 0.9% 1000 ML 1,000 ML IV SCH ×2 (08:00→16:31)
[2021-09-21 08:52] LABS: RPR Non Reactive (Non Reactive)
[2021-09-21] MEDS: ECOTRIN 81 MG PO SCH (09:33)
[2021-09-21] MEDS: Zestril 10 MG PO SCH (09:34)
[2021-09-21] MEDS: SYNTHROID 75 MCG PO SCH (09:34)
[2021-09-21] MEDS: Lantus Insulin SQ SCH ×2 (09:50→22:11)
[2021-09-21] MEDS: NORCO 5/325 MG PO PRN ×3 (09:53→22:09)
[2021-09-21] MEDS ORDERED: Zestril 5 MG PO SCH (10:00)
[2021-09-21] MEDS ORDERED: FLUTICASONE FUROATE 100 MCG IH SCH (10:00)
[2021-09-21 10:13] LABS: ANION GAP 8.2 MEQ/L (5-15); BLOOD UREA NITROGEN 14 mg/dL (7-17); CHLORIDE 109 mmol/L (98-107); Calcium 7.8 mg/dL (8.4-10.2); Carbon Dioxide 18 mmol/L (22-30); Creatinine 1 0.73 mg/dL (0.52-1.04); EST GLOMERULAR FILTRATION RATE > 60.0 ML/MIN; Glucose 102 mg/dL (74-106); MAGNESIUM 1.6 mg/dL (1.6-2.3); Potassium 3.8 mmol/L (3.5-5.1); SODIUM 132 mmol/L (137-145)
[2021-09-21] MEDS: Zofran 4 MG/2 ML VIAL IV PRN ×3 (13:11→22:09)
[2021-09-21] MEDS: HUMALOG SQ PRN ×3 (15:04→22:09)
--- NOTE | 2021-09-21 16:53 | PCM.NOTE ---
Date and Time: 09/21/21 1649 Subjective Assessment: Pt having diarrhea and feels weak, although maybe feeling better than at admission. Stools are liquid. Pt is oriented to place but thinks the year is 2019. - Review of Systems Constitutional: No Fever Abdominal/Gastrointestinal: Diarrhea Objective Exam General Appearance: no apparent distress, alert Neurologic Exam: cooperative, disoriented, depressed mood/affect Skin Exam: normal color, warm, dry, No rash Eye Exam: eyes nml inspection Ears, Nose, Throat Exam: moist mucous membranes Neck Exam: normal inspection Respiratory Exam: normal breath sounds, lungs clear, No crackles/rales, No rhonchi, No wheezing Cardiovascular Exam: regular rate/rhythm, normal heart sounds, No murmur Gastrointestinal/Abdomen Exam: soft, normal bowel sounds, No tenderness, No distention, No mass, No guarding, No rebound Extremity Exam: normal inspection, No pedal edema, No swelling OBJECTIVE DATA Vital Signs: Vital Signs - 24 hr Temp Pulse Resp BP Pulse Ox 09/21/21 16:00 97.7 F 66 19 121/58 94 L 09/21/21 12:00 97.7 F 66 19 121/58 94 L 09/21/21 08:00 73 12 130/72 94 L 09/21/21 07:38 79 18 96 09/21/21 04:00 98.6 F 84 18 149/78 93 L 09/21/21 00:00 97.5 F 82 18 176/80 95 09/20/21 20:00 97.5 F 79 20 167/70 98 09/20/21 18:53 78 16 97 Pain Assessment - Last Documented Pain Intensity 6 Pain Scale Used 0-10 Pain Scale Intake and Output: Intake & Output 09/19/21 09/20/21 09/21/21 09/22/21 11:59 11:59 11:59 11:59 Intake Total 876 2413 Output Total 50 Balance 876 2363 Weight 52 kg Lab Results: Lab Results-Last 24 Hours 09/19/21 09/20/21 09/20/21 Range/Units 18:00 09:15 22:56 WBC (4.0-10.5) K/mm3 RBC (4.1-5.4) M/mm3 Hgb (12.0-16.0) gm/dl Hct (35-47) % MCV (78-100) fl MCH (26-32) pg MCHC (32-36) g/dl RDW (11.5-14.0) % Plt Count (150-450) K/mm3 MPV (7.5-11.0) fl Gran % (36.0-66.0) % Eos # (Auto) (0-0.5) Absolute Lymphs (auto) (1.0-4.6) Absolute Monos (auto) (0.0-1.3) Lymphocytes % (24.0-44.0) % Monocytes % (0.0-12.0) % Eosinophils % (0.00-5.0) % Basophils % (0.0-0.4) % Absolute Granulocytes (1.4-6.9) Basophils # (0-0.4) Sodium (137-145) mmol/L Potassium (3.5-5.1) mmol/L Chloride (98-107) mmol/L Carbon Dioxide (22-30) mmol/L Anion Gap (5-15) MEQ/L BUN (7-17) mg/dL Creatinine (0.52-1.04) mg/dL Estimated GFR ML/MIN Glucose (74-106) mg/dL POC Glucometer 176 H (74 to 106) mg/dL Hemoglobin A1c (4.5-6.0) % Calcium (8.4-10.2) mg/dL Magnesium (1.6-2.3) mg/dL C-Reactive Prot, Quant 4 (0-10) mg/L RPR Non Reactive (Non Reactive) 09/21/21 09/21/21 09/21/21 Range/Units 07:00 07:00 08:59 WBC 11.8 H (4.0-10.5) K/mm3 RBC 4.05 L (4.1-5.4) M/mm3 Hgb 11.4 L D (12.0-16.0) gm/dl Hct 33.8 L (35-47) % MCV 83.5 (78-100) fl MCH 28.1 (26-32) pg MCHC 33.7 (32-36) g/dl RDW 14.4 H (11.5-14.0) % Plt Count 232 (150-450) K/mm3 MPV 9.6 (7.5-11.0) fl Gran % 66.8 H (36.0-66.0) % Eos # (Auto) 0.14 (0-0.5) Absolute Lymphs (auto) 2.95 (1.0-4.6) Absolute Monos (auto) 0.80 (0.0-1.3) Lymphocytes % 25.0 (24.0-44.0) % Monocytes % 6.8 (0.0-12.0) % Eosinophils % 1.2 (0.00-5.0) % Basophils % 0.2 (0.0-0.4) % Absolute Granulocytes 7.88 H (1.4-6.9) Basophils # 0.02 (0-0.4) Sodium 132 L (137-145) mmol/L Potassium 3.8 (3.5-5.1) mmol/L Chloride 109 H (98-107) mmol/L Carbon Dioxide 18 L (22-30) mmol/L Anion Gap 8.2 (5-15) MEQ/L BUN 14 (7-17) mg/dL Creatinine 0.73 (0.52-1.04) mg/dL Estimated GFR > 60.0 ML/MIN Glucose 102 (74-106) mg/dL POC Glucometer 118 H (74 to 106) mg/dL Hemoglobin A1c (4.5-6.0) % Calcium 7.8 L (8.4-10.2) mg/dL Magnesium 1.6 (1.6-2.3) mg/dL C-Reactive Prot, Quant (0-10) mg/L RPR (Non Reactive) 09/21/21 09/21/21 09/21/21 Range/Units 12:04 13:30 16:43 WBC (4.0-10.5) K/mm3 RBC (4.1-5.4) M/mm3 Hgb (12.0-16.0) gm/dl Hct (35-47) % MCV (78-100) fl MCH (26-32) pg MCHC (32-36) g/dl RDW (11.5-14.0) % Plt Count (150-450) K/mm3 MPV (7.5-11.0) fl Gran % (36.0-66.0) % Eos # (Auto) (0-0.5) Absolute Lymphs (auto) (1.0-4.6) Absolute Monos (auto) (0.0-1.3) Lymphocytes % (24.0-44.0) % Monocytes % (0.0-12.0) % Eosinophils % (0.00-5.0) % Basophils % (0.0-0.4) % Absolute Granulocytes (1.4-6.9) Basophils # (0-0.4) Sodium (137-145) mmol/L Potassium (3.5-5.1) mmol/L Chloride (98-107) mmol/L Carbon Dioxide (22-30) mmol/L Anion Gap (5-15) MEQ/L BUN (7-17) mg/dL Creatinine (0.52-1.04) mg/dL Estimated GFR ML/MIN Glucose (74-106) mg/dL POC Glucometer 216 H 215 H (74 to 106) mg/dL Hemoglobin A1c 9.22 H (4.5-6.0) % Calcium (8.4-10.2) mg/dL Magnesium (1.6-2.3) mg/dL C-Reactive Prot, Quant (0-10) mg/L RPR (Non Reactive) Radiology Exams: Radiology Procedures Category Date Time Status CHEST 1 VIEW (PORTABLE) Stat Exams 09/19/21 17:48 Completed HEAD WITHOUT CONTRAST [CT] Stat Exams 09/19/21 17:48 Completed MRA BRAIN WITHOUT CONTRAST [MRI] Routine Exams 09/20/21 08:35 Completed MRA NECK WITHOUT CONTRAST [MRI] Routine Exams 09/20/21 08:35 Completed MRI BRAIN W/O CONTRAST [MRI] Routine Exams 09/20/21 08:34 Completed Multi-Disciplinary Progress Notes: Multi-Disciplinary Progress Notes 09/21/21 15:31 Case Management Note by Alyce Ramesh ORDER FOR ROLLATOR SENT TO [facility]IA [place] AT THIS TIME Initialized on 09/21/21 15:31 - END OF NOTE 09/21/21 10:33 Case Management Note by Alyce Ramesh S/W SISTER CHARLIE- SHE WAS INTERESTED IN REHAB PLACEMENT IN [facility] HOWEVER D/T P ATIENT PRESUMPTIVE MEDICAID- LOCAL [place] WILL NOT TAKE PATIENT. SHE WAS NOTIFIED THAT [facility] IN [place]OULD BE OUR BEST OPTION FOR THIS REASON. SHE IDEALLY DID NOT WANT PATIENT OUT OF [place] SHE IS HAVING TROUBLE WITH TRANSPORTATION AT THIS TIME. SHE IS OPEN TO BRINGING PATIENT HOME AND CARE FOR HER 24/04 WITH [facility] IF PATIENT IS ABLE TO MOVE A BIT TO BE ABLE TO ASSIST. PT TO EVAL PATIENT TODAY. SISTER ALSO NOTIFIED THAT WITH DEMENTIA DIAGNOSIS INSURANCE MAY NOT APPROVE A REHAB STAY ANYWAYS D/T DEMENTIA NOT BEING REHABABLE. SHE VERIFIED UNDERSTANDING Initialized on 09/21/21 10:33 - END OF NOTE Assessment/Plan (1) Altered mental status Current Visit: Yes Status: Acute Qualifiers: Altered mental status type: delirium Qualified Code(s): R41.0 - Disorientation, unspecified Assessment & Plan: Teleneurology consult reported dx of likely sundowning/delerium in a setting of mild cognitive impairment. She is cooperative, just not entirely oriented today. Code(s): R41.82 - ALTERED MENTAL STATUS, UNSPECIFIED (2) Hyponatremia Current Visit: Yes Status: Acute Assessment & Plan: improved to 132 from 129 Code(s): E87.1 - HYPO-OSMOLALITY AND HYPONATREMIA (3) Diarrhea Current Visit: Yes Status: Acute Qualifiers: Diarrhea type: unspecified type Qualified Code(s): R19.7 - Diarrhea, unspecified Assessment & Plan: Test for C. diff. Started today. 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
[2021-09-21] MEDS: ZOCOR 20MG PO SCH (22:09)
[2021-09-22] MEDS: Sodium Chloride 0.9% 1000 ML 1,000 ML IV SCH ×3 (00:41→13:40)
[2021-09-22] MEDS: Zofran 4 MG/2 ML VIAL IV PRN ×2 (03:01→17:06)
[2021-09-22] MEDS: NORCO 5/325 MG PO PRN ×3 (07:58→18:37)
--- NOTE | 2021-09-22 09:06 | PCM.NOTE ---
Date and Time: 09/22/21901 Subjective Assessment: patient is more alert and oriented today, had diarrhea all night and burning in the top of her stomach to her chest. Objective Exam General Appearance: no apparent distress Neurologic Exam: alert, oriented x 3, cooperative Respiratory Exam: normal breath sounds, lungs clear, No respiratory distress Cardiovascular Exam: regular rate/rhythm, normal heart sounds Gastrointestinal/Abdomen Exam: soft, other (well healed midline) OBJECTIVE DATA Vital Signs: Vital Signs - 24 hr Temp Pulse Resp BP Pulse Ox 09/22/21 07:46 98.3 F 82 16 143/76 96 09/22/21 07:20 70 18 97 09/22/21 04:00 97.9 F 72 18 164/77 97 09/22/21 00:00 98.6 F 78 17 157/78 96 09/21/21 20:00 97.9 F 72 19 163/74 100 09/21/21 18:19 68 18 97 09/21/21 16:00 97.8 F 70 16 130/70 99 09/21/21 12:00 97.7 F 66 19 121/58 94 L Pain Assessment - Last Documented Pain Intensity 10 Pain Scale Used 0-10 Pain Scale Intake and Output: Intake & Output 09/19/21 09/20/21 09/21/21 09/22/21 11:59 11:59 11:59 11:59 Intake Total 876 2413 3142 Output Total 50 Balance 876 2363 3142 Weight 52 kg Lab Results: Lab Results-Last 24 Hours 09/21/21 09/21/21 09/21/21 Range/Units 07:00 12:04 13:30 Sodium 132 L (137-145) mmol/L Potassium 3.8 (3.5-5.1) mmol/L Chloride 109 H (98-107) mmol/L Carbon Dioxide 18 L (22-30) mmol/L Anion Gap 8.2 (5-15) MEQ/L BUN 14 (7-17) mg/dL Creatinine 0.73 (0.52-1.04) mg/dL Estimated GFR > 60.0 ML/MIN Glucose 102 (74-106) mg/dL POC Glucometer 216 H (74 to 106) mg/dL Hemoglobin A1c 9.22 H (4.5-6.0) % Calcium 7.8 L (8.4-10.2) mg/dL Magnesium 1.6 (1.6-2.3) mg/dL 09/21/21 09/21/21 09/22/21 Range/Units 16:43 22:00 06:34 Sodium (137-145) mmol/L Potassium (3.5-5.1) mmol/L Chloride (98-107) mmol/L Carbon Dioxide (22-30) mmol/L Anion Gap (5-15) MEQ/L BUN (7-17) mg/dL Creatinine (0.52-1.04) mg/dL Estimated GFR ML/MIN Glucose (74-106) mg/dL POC Glucometer 215 H 201 H 119 H (74 to 106) mg/dL Hemoglobin A1c (4.5-6.0) % Calcium (8.4-10.2) mg/dL Magnesium (1.6-2.3) mg/dL Radiology Exams: Radiology Procedures Category Date Time Status MRA BRAIN WITHOUT CONTRAST [MRI] Routine Exams 09/20/21 08:35 Completed MRA NECK WITHOUT CONTRAST [MRI] Routine Exams 09/20/21 08:35 Completed MRI BRAIN W/O CONTRAST [MRI] Routine Exams 09/20/21 08:34 Completed Multi-Disciplinary Progress Notes: Multi-Disciplinary Progress Notes 09/21/21 15:31 Case Management Note by Alyce Ramesh ORDER FOR ROLLATOR SENT TO [facility]IA [facility] AT THIS TIME Initialized on 09/21/21 15:31 - END OF NOTE 09/21/21 10:33 Case Management Note by Alyce Ramesh S/W SISTER CHARLIE- SHE WAS INTERESTED IN REHAB PLACEMENT IN [facility] HOWEVER D/T PATIENT PRESUMPTIVE MEDICAID- LOCAL [place] NOT TAKE PATIENT. SHE WAS NOTIFIED THAT [facility] IN [place]OULD BE OUR BEST OPTION FOR THIS REASON. SHE IDEALLY DID NOT WANT PATIENT OUT OF [place] SHE IS HAVING TROUBLE WITH TRANSPORTATION AT THIS TIME. SHE IS OPEN TO BRINGING PATIENT HOME AND CARE FOR HER 24/04 WITH [facility] IF PATIENT IS ABLE TO MOVE A BIT TO BE ABLE TO ASSIST. PT TO EVAL PATIENT TODAY. SISTER ALSO NOTIFIED THAT WITH DEMENTIA DIAGNOSIS INSURANCE MAY NOT APPROVE A REHAB STAY ANYWAYS D/T DEMENTIA NOT BEING REHABABLE. SHE VERIFIED UNDERSTANDING Initialized on 09/21/21 10:33 - END OF NOTE Assessment/Plan (1) Abdominal pain Current Visit: Yes Status: Acute Assessment & Plan: pain in epigastrium and diarrhea, c diff pending. labs ordered this am Code(s): R10.9 - UNSPECIFIED ABDOMINAL PAIN (2) Altered mental status Current Visit: Yes Status: Acute Qualifiers: Altered mental status type: delirium Qualified Code(s): R41.0 - Disorientation, unspecified Assessment & Plan: likely secondary to underlying mild dementia and polysubstance use including marijuana, narcotic and benzo. nothing on neuro workup Code(s): R41.82 - ALTERED MENTAL STATUS, UNSPECIFIED (3) Carotid stenosis, bilateral Current Visit: Yes Status: Chronic Code(s): I65.23 - OCCLUSION AND STENOSIS OF BILATERAL CAROTID ARTERIES (4) H/O carotid endarterectomy Current Visit: Yes Status: Chronic Code(s): Z98.890 - OTHER SPECIFIED POSTPROCEDURAL STATES (5) Type 2 diabetes mellitus Current Visit: Yes Status: Chronic Qualifiers: Diabetes mellitus zinc chloride operator insulin use: without shelter use
[2021-09-22] MEDS: PROTONIX 40 MG IV IV SCH (09:34)
[2021-09-22] MEDS: Carafate 1 GM PO SCH ×3 (09:36→21:26)
[2021-09-22] MEDS: Lantus Insulin SQ SCH ×2 (09:40→21:27)
[2021-09-22 10:11] LABS: Absolute Neutrophil Ct (ANC) 9.64 (1.4-6.9); BASOPHIL % 0.2 % (0.0-0.4); Basophil (Absolute #) 0.02 (0-0.4); Eosinophil % 1.1 % (0.00-5.0); Eosinophil (Absolute #) 0.14 (0-0.5); Hematocrit 32.2 % (35-47); Hemoglobin 10.8 gm/dl (12.0-16.0); Lymphocyte (Absolute #) 2.32 (1.0-4.6); Mean Cell Volume 85.4 fl (78-100); Mean Corpuscular Hemoglobin 28.6 pg (26-32); Mean Corpuscular Hgb Concent. 33.5 g/dl (32-36); Mean Platelet Volume 9.2 fl (7.5-11.0); Monocyte (Absolute #) 0.77 (0.0-1.3); Neutrophil % 74.7 % (36.0-66.0); Platelet Count 209 K/mm3 (150-450); Red Blood Count 3.77 M/mm3 (4.1-5.4); Red Cell Distribution Width 14.5 % (11.5-14.0); White Blood Count 12.9 K/mm3 (4.0-10.5)
[2021-09-22 10:24] LABS: ALBUMIN 2.7 g/dL (3.5-5.0); ALKALINE PHOSPHATASE 61 U/L (38-126); ANION GAP 7.6 MEQ/L (5-15); BLOOD UREA NITROGEN 9 mg/dL (7-17); CHLORIDE 108 mmol/L (98-107); Calcium 7.7 mg/dL (8.4-10.2); Carbon Dioxide 20 mmol/L (22-30); Creatinine 1 0.69 mg/dL (0.52-1.04); EST GLOMERULAR FILTRATION RATE > 60.0 ML/MIN; Glucose 155 mg/dL (74-106); LIPASE 274 U/L (23-300); Potassium 3.6 mmol/L (3.5-5.1); SGOT/AST 25 U/L (14-36); SGPT/ALT 14 U/L (0-35); SODIUM 132 mmol/L (137-145); Total Protein 5.2 g/dL (6.3-8.2)
[2021-09-22] MEDS: Zestril 10 MG PO SCH (11:24)
[2021-09-22] MEDS: SYNTHROID 75 MCG PO SCH (11:24)
[2021-09-22] MEDS: ECOTRIN 81 MG PO SCH (11:24)
[2021-09-22 11:31] LABS: 027 TOX PROD PRESUMPTIVE NEGATIVE (NEGATIVE)
[2021-09-22 12:32] LABS: TOXIGENIC C. DIFF ORG POSITIVE (NEGATIVE)
[2021-09-22] MEDS: VANCOMYCIN HCL CAPSULE PO SCH ×3 (13:40→23:32)
[2021-09-22] MEDS: HUMALOG SQ PRN ×2 (17:05→21:27)
[2021-09-22] MEDS: ZOCOR 20MG PO SCH (21:27)
[2021-09-23] MEDS: Sodium Chloride 0.9% 1000 ML 1,000 ML IV SCH (01:45)
[2021-09-23] MEDS: NORCO 5/325 MG PO PRN ×2 (04:33→11:27)
[2021-09-23 06:08] LABS: Absolute Neutrophil Ct (ANC) 8.37 (1.4-6.9); BASOPHIL % 0.2 % (0.0-0.4); Basophil (Absolute #) 0.02 (0-0.4); Eosinophil % 1.8 % (0.00-5.0); Eosinophil (Absolute #) 0.22 (0-0.5); Hematocrit 34.6 % (35-47); Hemoglobin 11.5 gm/dl (12.0-16.0); Lymphocyte (Absolute #) 3.09 (1.0-4.6); Mean Cell Volume 86.3 fl (78-100); Mean Corpuscular Hemoglobin 28.7 pg (26-32); Mean Corpuscular Hgb Concent. 33.2 g/dl (32-36); Mean Platelet Volume 10.1 fl (7.5-11.0); Monocyte (Absolute #) 0.64 (0.0-1.3); Monocytes % 5.2 % (0.0-12.0); Neutrophil % 67.8 % (36.0-66.0); Platelet Count 236 K/mm3 (150-450); Red Blood Count 4.01 M/mm3 (4.1-5.4); Red Cell Distribution Width 14.6 % (11.5-14.0); White Blood Count 12.3 K/mm3 (4.0-10.5)
[2021-09-23] MEDS: VANCOMYCIN HCL CAPSULE PO SCH ×2 (06:13→12:37)
[2021-09-23 06:25] LABS: ALKALINE PHOSPHATASE 67 U/L (38-126); ANION GAP 9.1 MEQ/L (5-15); BLOOD UREA NITROGEN 8 mg/dL (7-17); CHLORIDE 111 mmol/L (98-107); Calcium 8.4 mg/dL (8.4-10.2); Carbon Dioxide 18 mmol/L (22-30); Creatinine 1 0.73 mg/dL (0.52-1.04); EST GLOMERULAR FILTRATION RATE > 60.0 ML/MIN; Glucose 117 mg/dL (74-106); MAGNESIUM 1.7 mg/dL (1.6-2.3); Potassium 3.7 mmol/L (3.5-5.1); SGOT/AST 16 U/L (14-36); SGPT/ALT 13 U/L (0-35); SODIUM 135 mmol/L (137-145); Total Protein 5.7 g/dL (6.3-8.2)
[2021-09-23] MEDS: ECOTRIN 81 MG PO SCH (09:10)
[2021-09-23] MEDS: Carafate 1 GM PO SCH ×2 (09:10→12:37)
[2021-09-23] MEDS: Zestril 10 MG PO SCH (09:10)
[2021-09-23] MEDS: SYNTHROID 75 MCG PO SCH (09:10)
[2021-09-23] MEDS: PROTONIX 40 MG IV IV SCH (09:11)
[2021-09-23] MEDS: Lantus Insulin SQ SCH (09:11)
--- NOTE | 2021-09-23 10:01 | PCM.DS ---
Discharge Summary Date of Admission: 09/19/21 23:26 Admitting Physician: ILDA BLACK Consults: Consults on Case 09/20/21 08:36 Consult Neurology ROUTINE Primary Care Provider: VINCE MEJÍA Allergies Allergies Cephalosporins Allergy (Intermediate, Verified 09/19/21 18:10) Tetracyclines Allergy (Intermediate, Verified 09/19/21 18:10) avalox Allergy (Intermediate, Uncoded 09/19/21 18:10) Hospital Summary - Hospital Course Hospital Course: patient was admitted with altered mental status, on norco and xanax at home and admitted to thc use. had CEA left carotid 3 months ago, MRI/MRA brain and neck showed no significant vascular issues and no stroke. her EEG was unremarkable. suspect underlying dementia with delirium/acute exacerbation. she is doing much better, developed some abd pain and doing better, diarrhea improved on vanc c diff organism present on stool sample. has been treated for multiple UTIs in the past few months. - Vitals & Intake/Output Vital Signs: Vital Signs Temperature 97.1 F 09/23/21 08:00 Pulse Rate 72 09/23/21 08:08 Respiratory Rate 18 09/23/21 08:08 Blood Pressure 146/65 09/23/21 08:00 O2 Sat by Pulse Oximetry 97 09/23/21 08:08 Intake & Output: Intake & Output 09/20/21 09/21/21 09/22/21 09/23/21 11:59 11:59 11:59 11:59 Intake Total 876 2413 3382 2991 Output Total 50 600 Balance 876 2363 3382 2391 Weight 52 kg - Lab Result Diagrams: 09/23/21 05:00 09/23/21 04:50 Lab Results-Last 24 Hrs: Lab Results-Last 24 Hours 09/22/21 09/22/21 09/22/21 Range/Units 08:53 10:02 10:02 WBC 12.9 H (4.0-10.5) K/mm3 RBC 3.77 L (4.1-5.4) M/mm3 Hgb 10.8 L (12.0-16.0) gm/dl Hct 32.2 L (35-47) % MCV 85.4 (78-100) fl MCH 28.6 (26-32) pg MCHC 33.5 (32-36) g/dl RDW 14.5 H (11.5-14.0) % Plt Count 209 (150-450) K/mm3 MPV 9.2 (7.5-11.0) fl Gran % 74.7 H (36.0-66.0) % Eos # (Auto) 0.14 (0-0.5) Absolute Lymphs (auto) 2.32 (1.0-4.6) Absolute Monos (auto) 0.77 (0.0-1.3) Lymphocytes % 18.0 L (24.0-44.0) % Monocytes % 6.0 (0.0-12.0) % Eosinophils % 1.1 (0.00-5.0) % Basophils % 0.2 (0.0-0.4) % Absolute Granulocytes 9.64 H (1.4-6.9) Basophils # 0.02 (0-0.4) Sodium 132 L (137-145) mmol/L Potassium 3.6 (3.5-5.1) mmol/L Chloride 108 H (98-107) mmol/L Carbon Dioxide 20 L (22-30) mmol/L Anion Gap 7.6 (5-15) MEQ/L BUN 9 (7-17) mg/dL Creatinine 0.69 (0.52-1.04) mg/dL Estimated GFR > 60.0 ML/MIN Glucose 155 H (74-106) mg/dL POC Glucometer (74 to 106) mg/dL Calcium 7.7 L (8.4-10.2) mg/dL Magnesium (1.6-2.3) mg/dL Total Bilirubin 0.20 (0.2-1.3) mg/dL AST 25 (14-36) U/L ALT 14 (0-35) U/L Alkaline Phosphatase 61 (38-126) U/L Serum Total Protein 5.2 L (6.3-8.2) g/dL Albumin 2.7 L (3.5-5.0) g/dL Lipase 274 (23-300) U/L C. difficile Screen POSITIVE (NEGATIVE) C.difficile [id number]-NAP1-B1 PRESUMPTIVE NEGATIVE (NEGATIVE) 09/22/21 09/22/21 09/22/21 Range/Units 11:43 16:15 20:53 WBC (4.0-10.5) K/mm3 RBC (4.1-5.4) M/mm3 Hgb (12.0-16.0) gm/dl Hct (35-47) % MCV (78-100) fl MCH (26-32) pg MCHC (32-36) g/dl RDW (11.5-14.0) % Plt Count (150-450) K/mm3 MPV (7.5-11.0) fl Gran % (36.0-66.0) % Eos # (Auto) (0-0.5) Absolute Lymphs (auto) (1.0-4.6) Absolute Monos (auto) (0.0-1.3) Lymphocytes % (24.0-44.0) % Monocytes % (0.0-12.0) % Eosinophils % (0.00-5.0) % Basophils % (0.0-0.4) % Absolute Granulocytes (1.4-6.9) Basophils # (0-0.4) Sodium (137-145) mmol/L Potassium (3.5-5.1) mmol/L Chloride (98-107) mmol/L Carbon Dioxide (22-30) mmol/L Anion Gap (5-15) MEQ/L BUN (7-17) mg/dL Creatinine (0.52-1.04) mg/dL Estimated GFR ML/MIN Glucose (74-106) mg/dL POC Glucometer 143 H 278 H 201 H (74 to 106) mg/dL Calcium (8.4-10.2) mg/dL Magnesium (1.6-2.3) mg/dL Total Bilirubin (0.2-1.3) mg/dL AST (14-36) U/L ALT (0-35) U/L Alkaline Phosphatase (38-126) U/L Serum Total Protein (6.3-8.2) g/dL Albumin (3.5-5.0) g/dL Lipase (23-300) U/L C. difficile Screen (NEGATIVE) C.difficile 027-NAP1-B1 (NEGATIVE) 09/23/21 09/23/21 09/23/21 Range/Units 04:50 05:00 07:33 WBC 12.3 H (4.0-10.5) K/mm3 RBC 4.01 L (4.1-5.4) M/mm3 Hgb 11.5 L (12.0-16.0) gm/dl Hct 34.6 L (35-47) % MCV 86.3 (78-100) fl MCH 28.7 (26-32) pg MCHC 33.2 (32-36) g/dl RDW 14.6 H (11.5-14.0) % Plt Count 236 (150-450) K/mm3 MPV 10.1 (7.5-11.0) fl Gran % 67.8 H (36.0-66.0) % Eos # (Auto) 0.22 (0-0.5) Absolute Lymphs (auto) 3.09 (1.0-4.6) Absolute Monos (auto) 0.64 (0.0-1.3) Lymphocytes % 25.0 (24.0-44.0) % Monocytes % 5.2 (0.0-12.0) % Eosinophils % 1.8 (0.00-5.0) % Basophils % 0.2 (0.0-0.4) % Absolute Granulocytes 8.37 H (1.4-6.9) Basophils # 0.02 (0-0.4) Sodium 135 L (137-145) mmol/L Potassium 3.7 (3.5-5.1) mmol/L Chloride 111 H (98-107) mmol/L Carbon Dioxide 18 L (22-30) mmol/L Anion Gap 9.1 (5-15) MEQ/L BUN 8 (7-17) mg/dL Creatinine 0.73 (0.52-1.04) mg/dL Estimated GFR > 60.0 ML/MIN Glucose 117 H (74-106) mg/dL POC Glucometer 125 H (74 to 106) mg/dL Calcium 8.4 (8.4-10.2) mg/dL Magnesium 1.7 (1.6-2.3) mg/dL Total Bilirubin 0.20 (0.2-1.3) mg/dL AST 16 (14-36) U/L ALT 13 (0-35) U/L Alkaline Phosphatase 67 (38-126) U/L Serum Total Protein 5.7 L (6.3-8.2) g/dL Albumin 3.0 L (3.5-5.0) g/dL Lipase (23-300) U/L C. difficile Screen (NEGATIVE) C.difficile 027-NAP1-B1 (NEGATIVE) Micro Results-Entire Visit: Microbiology 09/19/21 18:20 Blood Culture - Preliminary Blood NO GROWTH TO DATE 09/19/21 18:04 Blood Culture - Preliminary Blood NO GROWTH TO DATE 09/19/21 18:04 Urine Culture - Final Urine, Catheterized NO GROWTH Accuchecks Date 09/23/21 Time 07:35 - Procedures and Test Procedures and Tests throughout Hospitalization: Therapy Orders & Screens 09/20/21 08:36 EEG 41-60 Minutes (Normal) ONCE Comment: Reason For Exam: Diagnosis: altered mental status 09/21/21 07:00 Respiratory Therapy Assessment DAILY Comment: Diagnosis: altered mental status 09/21/21 08:44 PT Eval & Treat (MD Order) ONCE Reason for Eval:: pt weak - may not be ready for treatment yet Diagnosis: altered mental status Discharge Exam General Appearance: no apparent distress Neurologic Exam: alert, oriented x 3, cooperative Respiratory Exam: normal breath sounds, lungs clear, No respiratory distress Cardiovascular Exam: regular rate/rhythm, normal heart sounds Gastrointestinal/Abdomen Exam: soft, No tenderness, No mass Skin Exam: normal color, warm, dry Final Diagnosis/Problem List - Final Discharge Diagnosis/Problem (1) C. difficile diarrhea Current Visit: Yes Status: Acute Assessment & Plan: home on po vanc Code(s): A04.72 - ENTEROCOLITIS D/T CLOSTRIDIUM DIFFICILE, NOT SPCF RECUR (2) Abdominal pain Current Visit: Yes Status: Acute Code(s): R10.9 - UNSPECIFIED ABDOMINAL PAIN (3) Altered mental status Current Visit: Yes Status: Acute Code(s): R41.82 - ALTERED MENTAL STATUS, UNSPECIFIED (4) Carotid stenosis, bilateral Current Visit: Yes Status: Chronic Code(s): I65.23 - OCCLUSION AND STENOSIS OF BILATERAL CAROTID ARTERIES (5) H/O carotid endarterectomy Current Visit: Yes Status: Chronic Code(s): Z98.890 - OTHER SPECIFIED PO STPROCEDURAL STATES (6) Type 2 diabetes mellitus Current Visit: Yes Status: Chronic - Discharge Disposition: Home, Self-Care Condition: Good Prescriptions: New PANTOPRAZOLE 40 mg Tablet [Protonix 40MG Tablet] 40 mg PO QPM #30 tab Vancomycin HCl [Vancomycin HCl Capsule] 125 mg PO Q6HT #36 cap Continue Metformin HCl [Metformin ER Gastric] 1,000 mg PO BID Atorvastatin Calcium [Lipitor 40Mg] 20 mg PO DAILY Lisinopril 5 mg [Zestril 5 MG] 10 mg PO DAILY Iron 325 mg PO BID ondansetron HCL [Zofran] 4 mg PO Q6H PRN #10 tablet PRN Reason: Nausea/Vomiting Nicotine [Nicotine Patch] 21 mg TD DAILY Mirtazapine 30 mg [Remeron 30 mg] 45 mg PO HS Levothyroxine Sodium 50 Mcg [Synthroid 50 Mcg] 75 mcg PO DAILY Insulin Lispro [Admelog] 100 unit SQ ACHS Insulin Glargine [Lantus Insulin] 20 units SQ BID Furosemide 40 mg [Lasix 40 MG] 60 mg PO DAILY Fluticasone Furoate [Arnuity Ellipta] 100 mcg IH DAILY Calcium Carb/Vitamin D 500 mg* [Calcium 500MG W/Vit D Tablet] 1 tab PO BID Buspirone HCl 15 mg PO BID Aspirin [Adult Low Dose Aspirin EC] 81 mg PO DAILY Albuterol Sulfate [Albuterol Sulfate Hfa] 18 gm IH Q6H PRN PRN PRN Reason: Shortness Of Breath/Wheezing Nitroglycerin 0.4 mg Tablet [Nitrostat 0.4 MG Tablet] 0.4 mg SL Q5MIN PRN MR X 3 PRN PRN Reason: Chest Pain Omeprazole 20 mg PO DAILY Tizanidine HCl 4 mg [Zanaflex 4 MG] 4 mg PO HS Follow up with: VINCE MEJÍA [Primary Care Provider] - 1 Week
[2021-09-23 13:02] VITALS: BP 151/67; PULSE 70; O2SAT 100
[2021-09-23] MEDS: HUMALOG SQ PRN (13:35)
[2021-09-27 22:10] LABS: Methylmalonic Acid 186 nmol/L (0-378)
== END 2021-09-23 13:45 | disposition home or self-care (01) ==
LOC: ED 17:17 → MED SURG 23:26
PROVIDERS: ADMIT Family Medicine; ATTEND Family Medicine
DX: A04.72 Enterocolitis due to Clostridium difficile, not specified as recurrent (principal); R10.9 Unspecified abdominal pain; R41.82 Altered mental status, unspecified; I65.23 Occlusion and stenosis of bilateral carotid arteries; I10 Essential (primary) hypertension; E11.9 Type 2 diabetes mellitus without complications; J44.9 Chronic obstructive pulmonary disease, unspecified; R19.7 Diarrhea, unspecified; E87.1 Hypo-osmolality and hyponatremia; F17.200 Nicotine dependence, unspecified, uncomplicated; Z98.890 Other specified postprocedural states; Z79.899 Other long term (current) drug therapy; Z20.828 Contact with and (suspected) exposure to other viral communicable diseases
CPT/HCPCS: 0241U; 36000; 36415; 70450; 70544; 70547; 70551; 71045; 80048; 80053; 80307; 81001; 82140; 82607; 82947; 83036; 83605; 83690; 83735; 83921; 84145; 84443; 84484; 85025; 85730; 86140; 86592; 87040; 87086; 87493; 93005; 94760; 95812; 96374; 97110; 97161; 97530; 99285; G0378; Q3014; J1817; J1885; J2060; J2405; A9270-GY; G0480